=== PATIENT | male | born 1955 | race Caucasian/White ===

== ENCOUNTER → 2017-05-24 09:08 | Outpatient (CLI) | payer OTHER, SELFPAY ==
--- NOTE | 2017-05-24 09:19 | XR_ITS ---
XR chest 2V HISTORY: ITS.REASON: SHORTNESS OF BREATH,COUGH ORDERING PHYSICIAN: Devin Rayo MD PATIENT AGE: 61 years COMPARISON: None available FINDINGS: There is cardiomegaly without failure. There has been a prior CABG and there is a bipolar pacemaker present. Coronary artery stent is noted on the right. Lungs are clear bilaterally.. No acute bony anomalies. IMPRESSION: Prior CABG with cardiomegaly, no acute finding.
== END ==
PROVIDERS: PCP Family Medicine; Visit Provider Family Medicine
DX: R06.02 Shortness of breath (principal); R05 Cough
CPT/HCPCS: 71046

== ENCOUNTER → 2020-02-06 12:34 | Outpatient (CLI) | payer OTHER, SELFPAY | PROVIDERS: PCP Family Medicine; Visit Provider Family Medicine | DX: Z03.818 Encounter for observation for suspected exposure to other biological agents ruled out (principal) | CPT/HCPCS: U0003 ==

== ENCOUNTER → 2020-04-01 15:55 | Outpatient (CLI) | payer MEDICARE, SELFPAY | PROVIDERS: PCP Family Medicine; Visit Provider Family Medicine | DX: Z20.828 Contact with and (suspected) exposure to other viral communicable diseases (principal); U07.1 COVID-19; J06.9 Acute upper respiratory infection, unspecified | CPT/HCPCS: U0003 ==

== ENCOUNTER 2020-04-16 09:49 | Observation (INO) | payer MEDICARE, SELFPAY ==
--- NOTE | 2020-04-16 10:01 | XR_ITS ---
PROCEDURE: XR CHEST PORTABLE Referring Doctor: Uzair Jhonathan Patient Age:64Y CLINICAL HISTORY: covid pneumonia COMPARISON: CR CXR2V XR chest 2V from 05/24/2017 FINDINGS: Today's AP portable upright chest is compared to 05/24/2017 CXR two view Although I see no prominent dense areas of consolidation believe there are some very subtle changes and suspect subtle early infiltrates bilaterally but At right lung base suspect very subtle area minor hazy infiltrate, just above the right hemidiaphragm at RLL. At right mid lung question subtle hazy is slightly denser appearance at the periphery of the right mid lung possible subtle peripheral infiltrate? Left chest: Pacemaker overlies the left chest, a obscures portions of the left mid lung. At the left chest only question some mild accentuation of markings perihilar region as was well as towards the left CP angle. Slight more ill-defined left heart border. However the these observations are minimal/equivocal and could reflect some mild chronic changes or possibly reflection of mild vascular congestion. There is cardiomegaly and there does seem to be some cephalization and prominent pulmonary vascularity, mild vascular congestion suspect. May benefit from correlation with BNP but no discrete pleural effusions but previous sternotomy. CABG. Shari and mediastinal structures otherwise unremarkable. IMPRESSION: Cardiomegaly CABG pacemaker. . Mild cephalization/mild vascular congestion suggested, possibly reflecting mild CHF-warrants correlation with BNP Subtle accentuation markings bilaterally could be due to mild CHF. Question possible very subtle patchy hazy infiltrate at the right right lung base and questionably at the periphery of right mid lung. At left chest only questionable subtle hazy appearance left perihilar region and towards the left CP angle. Dictated by: Vishnu Dyer MD 04/16/2020 11:26 Vishnu Dyer MD in [place] 04/16/2020 11:26
[2020-04-16 10:13] VITALS: BP 135/80; PULSE 91; RESP 20; TEMP 36.9; O2SAT 94; BMI 36.9
--- NOTE | 2020-04-16 11:33 | P.CONPHA_ITS ---
[facility] Pharmacy VTE Monitoring - Patient Demographics Admission date: 04/16/20 Report Date: 04/16/20 Time: 11:33 Allergies/Adverse Reactions: Patient Allergies Penicillin Allergy (Unknown, Uncoded 04/05/17 14:37) Penicillin G Procaine Allergy (Unknown, Uncoded 04/05/17 14:37) Height: 1.8 m Weight: 120.202 kg - Prophylaxis VTE Prophylaxis Ordered?: Yes Types of VTE Prophylaxis: TEDS Knee High, Pharmacological Location of Applied Device: Bilateral Lower Extremeties Pharmacologic Type: Enoxaparin
[2020-04-16 12:00] VITALS: BP 133/86; PULSE 80; RESP 19; TEMP 36.9; O2SAT 94
[2020-04-16 12:15] LABS: Basophils % 0.2 % (0.1-2.0); Hematocrit 36.6 % (42.0-52.0); Lymphocytes # 0.8 K/mm3 (0.7-4.5); Lymphocytes % 9.2 % (10-50); Mean Corpuscular HGB Conc 32.7 g/dL (31.8-35.4); Mean Corpuscular Hemoglobin 28.8 pg (27.0-31.2); Mean Corpuscular Volume 88.2 fl (80-94); Mean Platelet Volume 9.1 fl (7.4-10.4); Monocytes # 0.5 K/mm3 (0.1-1.0); Monocytes % 5.9 % (1.7-9.3); Neutrophils # 6.9 K/mm3 (1.8-7.8); Neutrophils % 84.7 % (37.0-80.0); Platelet Count 259 K/mm3 (142-424); Red Blood Count 4.15 M/mm3 (4.60-6.20); Red Cell Distribution Width 14.3 % (11.5-17.5); White Blood Count 8.2 K/mm3 (4.8-10.8)
[2020-04-16 12:29] VITALS: RESP 18; O2SAT 94
[2020-04-16 12:34] LABS: Lactic Acid 1.8 mmol/L (0.7-2.1)
[2020-04-16 12:38] LABS: Chloride 101 mmol/L (98-107); Potassium 4.9 mmoL/L (3.5-5.1); Sodium 135 mmol/L (136-145)
[2020-04-16 12:41] LABS: Anion Gap 13.9 mEq/L (5-15); Blood Urea Nitrogen 24 mg/dl (9-20); Carbon Dioxide 25 mmol/L (22.0-30.0); Creatinine Clearance Estimated 127 mL/min (50-200); Estimated Glomerular Filt Rate 85 ml/min (>60); GFR (African American) 103 ML/MIN (>60); Glucose 307 mg/dl (74-100)
[2020-04-16 12:48] LABS: C-Reactive Protein 63.4 mg/L (0-4)
[2020-04-16 12:52] LABS: NT Pro Brain Natriuretic Pep. 7510 pg/mL (0-125)
[2020-04-16 12:57] LABS: Coronavirus 19 IgG Antibody Positive (Negative)
[2020-04-16 12:58] LABS: Coronavirus 19 IgM Antibody Positive (Negative)
--- NOTE | 2020-04-16 13:47 | HMH.PHAINT ---
MEDICATION RECONCILIATION COMPLETED ON PATIENT USING EXTERNAL FILL HISTORY FROM PHARMACY AND LIST FROM MD OFFICE. -IGNACIO DIASD
[2020-04-16 16:00] VITALS: BP 147/95; PULSE 98; RESP 18; TEMP 36.8; O2SAT 91
--- NOTE | 2020-04-16 16:50 | HMH.HP ---
*Admission Date: 04/16/20 *Chief complaint: Shortness of breath *History of present illness: 64-year-old male diagnosed with COVID-19 infection on April 01. During this time patient was hospitalized once at [facility] for a 24-hour observation stay due to weakness and hypotension. He was subsequently treated with oral antibiotics for pneumonia possibly related to COVID-19. Patient was seen in our office yesterday and still felt profoundly weak with dyspnea both at rest and worse with exertion. Patient admitted that in regards to his dyspnea he actually felt worse than he had the previous 3 to 4 days. He returned to the office today for reevaluation and while he was able to maintain adequate oxygenation his dyspnea persisted and he continued to feel like he was declining. Lung exam did have bilateral rales and concern was had over developing superimposed pneumonia after COVID-19 infection. Patient was admitted for further work-up and to begin treatment with IV antibiotics. Since admission further work-up has revealed a low procalcitonin, chest x-ray showing signs of vascular congestion and an elevated BNP. Patient's past medical history is significant for ischemic cardiomyopathy with last known ejection fraction of 23%. Patient reports 1 or 2 days prior to his office visit he did develop pedal edema for which she began taking his Lasix. During his hospitalization at [facility] he had been taken off all diuretics. 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) - *Social History Last grade of school completed: High school graduate Alcohol Intake: never *Occupational Status:: disabled Housing: house Household Members: spouse *Travel in the last 8 weeks: None Family Hx:: Heart Attack Review of Systems - Constitutional Reports lack of energy, Denies anorexia, Denies body ache(s), Denies chills - ENT Denies abnormal hearing, Denies change in voice - *Cardiovascular Denies chest pain, Denies chest pain at rest, Denies chest pain with activity - *Respiratory Reports chest congestion, Reports cough, Reports shortness of breath, Reports shortness of breath with activity, Denies change in phlegm color, Denies excessive phlegm production, Denies pain on inspiration, Denies pain with cough, Denies wheezing - *Gastrointestinal Denies abdominal pain, Denies belching, Denies bloating, Denies heartburn - *Genitourinary Denies difficulty urinating - *Musculoskeletal Denies abnormal walking, Denies joint pain - Integumentary/Breasts Denies acne, Denies hair loss, Denies bleeding lesions - *Neurologic Denies abnormal walking, Denies abnormal hearing, Denies confusion Meds Home Medications Medication Instructions Recorded Confirmed Type Aspirin [Aspirin 81mg EC Tab] 81 mg PO DAILY 04/16/20 04/16/20 History Insulin Glargine,Hum.rec.anlog 65 units SQ DAILY 04/16/20 04/16/20 History [Lantus Solostar 100 Units/mL 3mL flexpen] Metformin HCl [Metformin HCl ER] 1,000 mg PO QPMWM 04/16/20 04/16/20 History Rosuvastatin Calcium [Crestor 20 20 mg PO DAILY 04/16/20 04/16/20 History mg Tablets] Sitagliptin Phos/Metformin HCl 1 tab PO DAILY 04/16/20 04/16/20 History [Janumet Xr 50-1,000 mg Tablet] Zinc 25 mg PO DAILY 04/16/20 04/16/20 History carvediloL [Carvedilol 6.25mg Tab] 6.25 mg PO BID 04/16/20 04/16/20 History dexAMETHasone [Dexamethasone] 6 mg PO DAILY 04/16/20 04/16/20 History Allergies Allergy/AdvReac Type Severity
[2020-04-16 17:44] VITALS: BMI 37.0
--- NOTE | 2020-04-16 18:20 | PC.NURSE ---
PT IS RESTING IN BED. NO COMPLAINTS OF DISCOMFORT. PT TOLERATED SITTING UP IN THE CHAIR THIS SHIFT. ALERT AND ORIENTED X4. O2 SATURATION 90-94% ON ROOM AIR SINCE ADMISSION. PT STATES HE FEELS LIKE HE BREATHES BETTER WHEN SITTING UP IN THE CHAIR. EATING AND DRINKING WELL. LUNG SOUNDS DIMINISHED. ABDOMEN SOFT/ NON TENDER WITH ACTIVE BOWEL SOUNDS. VSS. WILL CONTINUE TO MONITOR.
[2020-04-16 20:00] VITALS: BP 156/86; PULSE 85; RESP 20; TEMP 36.7; O2SAT 94; O2SAT 96
[2020-04-17] VITALS: BP 117/57; PULSE 86; RESP 18; TEMP 36.8; O2SAT 97
[2020-04-17 04:00] VITALS: BP 156/95; PULSE 82; RESP 20; TEMP 36.4; O2SAT 99
[2020-04-17 04:35] VITALS: BMI 37.5
[2020-04-17 05:32] LABS: Chloride 101 mmol/L (98-107); Potassium 4.6 mmoL/L (3.5-5.1); Sodium 137 mmol/L (136-145)
[2020-04-17 05:35] LABS: Alanine Aminotransferase 27 U/L (12-78); Albumin/Globulin Ratio 1.1 (1.1-1.8); Alkaline Phosphatase 52 U/L (38-126); Anion Gap 15.6 mEq/L (5-15); Aspartate Amino Transferase 25 U/L (17-59); Bilirubin,Total 0.5 mg/dl (0.2-1.3); Blood Urea Nitrogen 35 mg/dl (9-20); Carbon Dioxide 25 mmol/L (22.0-30.0); Creatinine Clearance Estimated 107 mL/min (50-200); Estimated Glomerular Filt Rate 61 ml/min (>60); GFR (African American) 74 ML/MIN (>60); Globulin 3.8 g/dL (1.3-3.2); Glucose 280 mg/dl (74-100); Total Protein,Serum 7.8 g/dl (6.3-8.2)
[2020-04-17 05:43] LABS: Basophils % 0.2 % (0.1-2.0); Eosinophils % 0.1 % (0.1-12.0); Hematocrit 37.6 % (42.0-52.0); Hemoglobin 12.4 g/dL (14.1-18.0); Lymphocytes # 0.9 K/mm3 (0.7-4.5); Lymphocytes % 7.8 % (10-50); Mean Corpuscular Hemoglobin 29.1 pg (27.0-31.2); Mean Corpuscular Volume 88.2 fl (80-94); Monocytes # 0.8 K/mm3 (0.1-1.0); Monocytes % 6.9 % (1.7-9.3); Neutrophils # 9.8 K/mm3 (1.8-7.8); Platelet Count 279 K/mm3 (142-424); Red Blood Count 4.26 M/mm3 (4.60-6.20); Red Cell Distribution Width 14.4 % (11.5-17.5); White Blood Count 11.5 K/mm3 (4.8-10.8)
[2020-04-17 05:50] LABS: MANUAL DIFFERENTIAL MANUAL DIFFERENTIAL (MANUAL DIFF)
[2020-04-17 05:52] LABS: Procalcitonin 0.094 ng/mL (0.0-2.0)
--- NOTE | 2020-04-17 06:11 | PC.NURSE ---
Pt is A&Ox4. Non-pitting edema noted to bilat feet. Lung sounds diminished t/o all lung davalos. No cough noted this shift. Pt tolerated RA majority of this shift, with o2 sats between 94-98% while awake. When asleep pt would desat to 84-88% for a few seconds then quickly come back up to 98%. Pt did ring out this shift asking to be placed on oxygen. Pt states my production technologist said I need to wear 2L at home, so I am used to that. 2L NC applied and o2 sat is currently at 99. Pt has urinated a total of 1,310 mL this shift. Urine is clear and yellow with no odor noted. Pt was switched to high intensity sliding scale this shift per MD [id number]-FSBS [id number]. No other acute changes or complaints at this time.
--- NOTE | 2020-04-17 07:45 | HMH.ACPN2 ---
Internal Medicine - PN: Subj *Date: 04/17/20 *Time: 07:45 Interval history: Patient's only complaint this morning is periods of shortness of breath. Patient maintained room air sats above 94% overnight. He ultimately asked for his supplemental oxygen which he usually wears at home. Patient maintained O2 sats in the high 90s after that. He reports orthopnea Exam Vital signs and Labs for Last 24 Hours: Temp Pulse Resp BP Pulse Ox 97.5 F L 82 20 156/95 H 99 04/17/20 04:00 04/17/20 04:00 04/17/20 04:00 04/17/20 04:00 04/17/20 04:00 Laboratory Results - last 24 hr 04/16/20 11:58: WBC 8.2, RBC 4.15 L, Hgb 12.0 L, Hct 36.6 L, MCV 88.2, MCH 28.8, MCHC 32.7, RDW 14.3, Plt Count 259, MPV 9.1, Neut % (Auto) 84.7 H, Lymph % (Auto) 9.2 L, [place] % (Auto) 5.9, Eos % (Auto) 0.0 L, Baso % (Auto) 0.2, Neut # (Auto) 6.9, Lymph # (Auto) 0.8, [place] # (Auto) 0.5, Eos # (Auto) 0.0, Baso # (Auto) 0.0 04/16/20 11:58: Sodium 135 L, Potassium 4.9, Chloride 101, Carbon Dioxide 25, Anion Gap 13.9, BUN 24 H, Creatinine 0.90, Estimated Creat Clear 127, Estimated GFR 85, Est GFR ( Amer) 103, Glucose 307 H, Calcium 10.0, C-Reactive Protein 63.4 H 04/16/20 11:58: Lactate 1.8 04/16/20 11:58: SARS-CoV-2 IgG Ab (Rapid) Positive A, SARS-CoV-2 IgM Ab (Rapid) Positive A 04/16/20 11:58: Procalcitonin 0.080 04/16/20 11:58: NT-Pro-B Natriuret Pep 7510 H 04/17/20 05:15: Procalcitonin 0.094 04/17/20 05:15: WBC 11.5 H D, RBC 4.26 L, Hgb 12.4 L, Hct 37.6 L, MCV 88.2, MCH 29.1, MCHC 33.0, RDW 14.4, Plt Count 279, MPV 9.0, Neut % (Auto) 85.0 H, Lymph % (Auto) 7.8 L, [place] % (Auto) 6.9, Eos % (Auto) 0.1, Baso % (Auto) 0.2, Neut # (Auto) 9.8 H, Lymph # (Auto) 0.9, [place] # (Auto) 0.8, Eos # (Auto) 0.0, Baso # (Auto) 0.0 04/17/20 05:15: Sodium 137, Potassium 4.6, Chloride 101, Carbon Dioxide 25, Anion Gap 15.6 H, BUN 35 H D, Creatinine 1.20 D, Estimated Creat Clear 107, Estimated GFR 61, Est GFR ( Amer) 74 D, Glucose 280 H, Calcium 10.0, Total Bilirubin 0.5, AST 25, ALT 27, Alkaline Phosphatase 52, Total Protein 7.8, Albumin 4.0, Globulin 3.8 H, Albumin/Globulin Ratio 1.1 I & O for Last 24 hours: Intake & Output 04/14/20 04/15/20 04/16/20 04/17/20 11:59 11:59 11:59 11:59 Intake Total 1520 / 1520 Output Total 2019 Balance -500 / -500 Weight 265 lb 268 lb - Constitutional no acute distress - *Routine Respiratory Exam Present: crackles (Bilateral bases left more than right) Comments: Improved aeration compared to yesterday - *Routine Cardiovascular Exam Present: irregular rhythm Assessment and Plan (1) Acute on chronic congestive heart failure Status: Acute Category: Medical Code(s): I50.9 - Heart failure, unspecified (2) COVID-19 virus infection Status: Acute Category: Medical Code(s): U07.1 - COVID-19 (3) Pneumonia due to COVID-19 virus Status: Acute Category: Medical Code(s): U07.1 - COVID-19; J12.89 - Other viral pneumonia (4) Type 2 diabetes mellitus with hyperglycemia, with long-term current use of insulin Status: Acute Category: Medical Code(s): E11.65 - Type 2 diabetes mellitus with hyperglycemia; Z79.4 - FDC (current) use of insulin - Assessment and plan all Dx Assessment and Plan for all problems:: 1. Restart patient's spironolactone and furosemide this morning which he has been off of for over a week. Monitor blood pressure this morning. If no problems by this afternoon patient may be discharged home
--- NOTE | 2020-04-17 07:50 | HMH.DCSUM ---
General - General Admission date:: 04/16/20 Discharge date: 04/17/20 HPI HPI: 64-year-old male diagnosed with COVID-19 infection on April 01. During this time patient was hospitalized once at [facility] for a 24-hour observation stay due to weakness and hypotension. He was subsequently treated with oral antibiotics for pneumonia possibly related to COVID-19. Patient was seen in our office yesterday and still felt profoundly weak with dyspnea both at rest and worse with exertion. Patient admitted that in regards to his dyspnea he actually felt worse than he had the previous 3 to 4 days. He returned to the office today for reevaluation and while he was able to maintain adequate oxygenation his dyspnea persisted and he continued to feel like he was declining. Lung exam did have bilateral rales and concern was had over developing superimposed pneumonia after COVID-19 infection. Patient was admitted for further work-up and to begin treatment with IV antibiotics. Since admission further work-up has revealed a low procalcitonin, chest x-ray showing signs of vascular congestion and an elevated BNP. Patient's past medical history is significant for ischemic cardiomyopathy with last known ejection fraction of 23%. Patient reports 1 or 2 days prior to his office visit he did develop pedal edema for which she began taking his Lasix. During his hospitalization at [facility] he had been taken off all diuretics. Hospital Course Hospital Course: Patient was admitted for suspected secondary pneumonia after COVID-19 infection. Upon admission chest x-ray was more supportive of fluid overload and congestive heart failure. White blood cell count was normal. Procalcitonin was less than 0.1. Patient was empirically started on Rocephin and azithromycin, given dexamethasone 6 mg p.o. and an additional dose of Remdesivir. Once x-rays and labs returned focused turned to fluid reduction and patient was given 40 mg of Lasix IV with 1300 mL of urine output overnight. Patient did maintain normal room air oxygen sats both during the day and at night. Patient does wear supplemental oxygen at night and did request this while hospitalized. The following morning the patient was feeling better he simply continued to endorse a sensation of dyspnea especially orthopnea. It was explained to the patient that this was a symptom of being fluid overloaded. Patient has known chronic congestive heart failure, systolic in nature with ejection fraction of 23% on last assessment. On the morning of the 31st patient was restarted on his spironolactone and furosemide as patient had been off these medications since his hospitalization at [facility]. Once patient tolerated restarting these medicines he was discharged home. He was advised to purchase a blood pressure monitor. He will restart his spironolactone and Lasix although we will continue to hold his metolazone at home. Patient will follow-up in the office in 1 week Objective Vital signs: Temp Pulse Resp BP Pulse Ox 97.5 F L 82 20 156/95 H 99 04/17/20 04:00 04/17/20 04:00 04/17/20 04:00 04/17/20 04:00 04/17/20 04:00 Results Labs on day of discharge: Labs from last 24 hours 04/17/20 04/17/20 04/17/20 05:15 05:15 05:15 WBC 11.5 H D RBC 4.26 L Hgb 12.4 L Hct 37.6 L MCV 88.2 MCH 29.1 MCHC 33.0 RDW 14.4 Plt Count 279 MPV 9.0 Neut % (Auto) 85.0 H Lymph % (Auto) 7.8 L [place] % (Auto) 6.9 Eos % (Auto) 0.1 Baso % (Auto) 0.2 Neut # (Auto) 9.8 H Lymph # (Auto) 0.9 [place] # (Auto) 0.8 Eos # (Auto) 0.0 Baso # (Auto) 0.0 Sodium 137 Potassium 4.6 Chloride 101 Carbon Dioxide 25 Anion Gap 15.6 H BUN 35 H D Creatinine 1.20 D Estimated Creat Clear 107 Estimated GFR 61 Est GFR ( Amer) 74 D Glucose 280 H Lactate Calcium 10.0 Total Bilirubin 0.5 AST 25 ALT
[2020-04-17 08:00] VITALS: BP 128/83; PULSE 83; RESP 18; TEMP 36.8; O2SAT 95; O2SAT 97
[2020-04-17 08:56] LABS: Lymphocytes % 9 % (10-50); Monocytes % 8 % (2-9); Neutrophils % 83 % (42-76); Platelet Estimate Normal; RBC Morphology Normal; Total Cells Counted 100
--- NOTE | 2020-04-17 09:54 | SW/DCPLANNER ---
PATIENT ADMITTED TO [facility] ON 04/16 AND WAS PUT IN THE COVID UNIT... HE HAS DONE WELL DURING HIS STAY AND IS PLANNING TO BE DISCHARGED THIS AFTERNOON.. AT THIS TIME THERE ARE NO ORDERS FOR ANY HOME CARE NECESSARY.. IF THIS SHOULD CHANGE, IT WILL BE SET UP AT TIME OF DISPOSITION...
[2020-04-17 12:00] VITALS: BP 139/92; PULSE 86; RESP 18; TEMP 36.7; O2SAT 96
--- NOTE | 2020-04-17 14:42 | PC.NURSE ---
Pt has been d/c'd. This nurse did make Dr. Dunne aware of one bottle of positive aerobic blood cx with gram pos cocci in clusters staphylococcus with the mec a gene.
--- NOTE | 2020-04-17 15:24 | PC.NURSE ---
MD Dr Dunne is aware of cx and stated blood cx was a contaminant.
[2020-04-17 17:27] LABS: POC Glucose,Bedside 230 (70-110)
[2020-04-17 17:27] LABS: POC Glucose,Bedside 480 (70-110)
[2020-04-17 17:27] LABS: POC Glucose,Bedside 235 (70-110)
[2020-04-17 17:27] LABS: POC Glucose,Bedside 374 (70-110)
== END 2020-04-17 14:05 | disposition home or self-care (01) ==
PROVIDERS: Admitting Provider Family Medicine; PCP Family Medicine; Visit Provider Family Medicine
DX: U07.1 COVID-19 (principal); J12.89 Other viral pneumonia; I11.0 Hypertensive heart disease with heart failure; I50.23 Acute on chronic systolic (congestive) heart failure; Z99.81 Dependence on supplemental oxygen; I48.91 Unspecified atrial fibrillation; I42.9 Cardiomyopathy, unspecified; E11.65 Type 2 diabetes mellitus with hyperglycemia; Z79.4 Long term (current) use of insulin; Z79.82 Long term (current) use of aspirin; I25.2 Old myocardial infarction; Z88.0 Allergy status to penicillin
CPT/HCPCS: G0379; 71045; 80048; 80053; 82962; 83605; 83880; 84145; 85007; 85025; 86140; 86328; 87040; 87077; 87186; G0378; J0456